=== PATIENT | female | born 1960 | race Caucasian/White ===

== ENCOUNTER 2020-04-10 14:47 | Outpatient (CLI) | payer OTHER ==
[~2020-04-10 14:47] MED LIST: ASCO100018 PO; CHOL10003 PO; HYDR2TAB29 PO; KELP1TAB PO; LETR2.5T3 PO; LEVO137T25 PO; LOSA50TA14 PO; PROP10TA16 PO; SPIR50TA4 PO
== END 2020-04-10 23:59 | disposition home or self-care (01) ==
LOC: CFH 14:47
PROVIDERS: ATTEND Family Medicine
DX: R92.8 Other abnormal and inconclusive findings on diagnostic imaging of breast (principal); Z85.3 Personal history of malignant neoplasm of breast
CPT/HCPCS: 77066; G0279